=== PATIENT | male | born 1985 | race Caucasian/White ===

== ENCOUNTER 2019-05-22 19:27 | Emergency (ER) | payer OTHER ==
--- NOTE | 2019-05-22 20:41 | ER Document Report ---
ED Medical Screen (RME) - General Chief Complaint: Cough Stated Complaint: CHEST PAIN,COUGH Time Seen by Provider: 05/22/19 20:38 Mode of Arrival: Ambulatory Information source: Patient Notes: 33-year-old male with no prior history presents emergency department with complaints of cough for the past 5 weeks. Reports hurts his chest when he coughs he feels like he gets short of breath. Patient was evaluated by an urgent care and diagnosed with bronchitis treated with a Z-Ezra. He reports he never picked up the Z-Ezra. That was a couple weeks ago. He denies fever vomiting diarrhea. Patient denies smoking. Respiratory rate even unlabored I have greeted and performed a rapid initial assessment of this patient. A comprehensive ED assessment and evaluation of the patient, analysis of test results and completion of the medical decision making process will be conducted by additional ED providers. - Related Data Allergies/Adverse Reactions: No Known Allergies Allergy (Verified 05/22/19 20:37) Physical Exam - Vital signs Vitals: Temp Pulse Resp BP Pulse Ox 98.1 F 77 18 141/88 H 100 05/22/19 19:56 05/22/19 19:56 05/22/19 19:56 05/22/19 19:56 05/22/19 19:56 Course - Vital Signs Vital signs: Temp Pulse Resp BP Pulse Ox 98.1 F 77 18 141/88 H 100 05/22/19 19:56 05/22/19 19:56 05/22/19 19:56 05/22/19 19:56 05/22/19 19:56
--- NOTE | 2019-05-22 21:31 | ER Document Report ---
HPI - HPI Time Seen by Provider: 05/22/19 20:38 Pain Level: 4 Context: Patient is a 33-year-old male that comes emergency department for chief complaint of cough for just over 4 weeks now. He states that he has had some mild congestion, minimal postnasal drip, frequent irritated cough with occasional sputum production. He states it is starting to hurt more in his chest with and without cough. He denies wheezing. He states he has coughed until he threw up on a couple occasions. He denies abdominal pain, diarrhea, fever. He denies smoking but does drink alcohol daily. He denies recreational drugs previously or now. He states 2 weeks ago he was seen at an urgent care and diagnosed with bronchitis, treated with a Z-Ezra but never filled or took the Z-Ezra. He denies any daily medications were diagnosed medical history. - CONSTITUTIONAL Constitutional: DENIES: Fever, Chills Past Medical History - General Information source: Patient - Social History Smoking Status: Former Smoker Frequency of alcohol use: Heavy Drug Abuse: None Lives with: Family Family History: Reviewed & Not Pertinent Patient has suicidal ideation: No Patient has homicidal ideation: No Past Surgical History: Reports: Hx Tonsillectomy - adenoids - Immunizations Immunizations up to date: Yes Hx Diphtheria, Pertussis, Tetanus Vaccination: Yes Vertical Provider Document - CONSTITUTIONAL General Appearance: WD/WN, No Apparent Distress - HEENT HEENT: Atraumatic, Normocephalic. negative: Normal ENT Exam - Minimal nasal congestion, unremarkable oral pharyngeal exam, normal ears, nontender sinuses, unremarkable nose - NECK Neck: Normal Inspection. negative: Lymphadenopathy-Left, Lymphadenopathy-Right - RESPIRATORY Respiratory: Breath Sounds Normal, No Respiratory Distress, Other - Occasional congested coughing episodes but no tachypnea, labored breathing, or respiratory distress. Clear lungs auscultation - CARDIOVASCULAR Cardiovascular: Regular Rate, Regular Rhythm - GI/ABDOMEN Gastrointestinal: Abdomen Soft, Abdomen Non-Tender - MUSCULOSKELETAL/EXTREMETIES Musculoskeletal/Extremeties: MAEW, FROM, Non-Tender - NEURO Level of Consciousness: Awake, Alert, Appropriate Motor/Sensory: No Motor Deficit, No Sensory Deficit - DERM Integumentary: Warm, Dry, No Rash Course - Re-evaluation Re-evalutation: Patient with persistent coughing for about a month now. No fevers. Chest pain with cough. EKG shows questionable right bundle branch block but no ischemic findings, no signs of pericarditis. Patient without chest pain when he is not coughing. He has no hypoxia, tachycardia, or signs of respiratory distress. He does have some congestion with the congested cough. Overall presentation is most consistent with bronchitis, possible allergic component because of ongoing symptoms without additional sick symptoms. Patient declines oral steroids. Patient given dexamethasone instead, placed on antihistamines daily, discussed expectations, follow-up, return precautions at length. Patient states understanding and agreement with plan. Stable time of discharge. - Vital Signs Vital signs: Temp Pulse Resp BP Pulse Ox 98.1 F 77 18 141/88 H 100 05/22/19 19:56 05/22/19 19:56 05/22/19 19:56 05/22/19 19:56 05/22/19 19:56 - Diagnostic Test Radiology results interpreted by me: EKG shows sinus rhythm at a rate of 75, normal axis, borderline right bundle branch block, no T wave inversions or ST segment changes in consecutive leads. Isolated T wave inversion in lead III. Discharge - Discharge Clinical Impression: Productive cough, Painful cough Condition: Stable Disposition: HOME, SELF-CARE Additional Instructions: Your chest x-ray is negative, your evaluation is most consistent with bronchitis and your ongoing symptoms are suggestive of an allergic component. You have been treated with dexamethasone here for your symptoms, I recommend that you take the daily medication as prescribed, take Tylenol, ibuprofen, etc. for symptom management at home. Follow-up with primary care provider for additional management as discussed. Return if you worsen including fever, difficulty breathing, passing out, or any other concerning or worsening symptoms. Prescriptions: Cetirizine HCl [All Day Allergy] 10 mg PO DAILY #30 tablet
--- NOTE | 2019-05-22 21:42 | RADIOLOGY REPORT (SQ) ---
EXAM DESCRIPTION: XR CHEST 2 VIEWS COMPLETED DATE/TME: 05/22/2019 20:40 CLINICAL HISTORY: 33 years Male COUGH FOR 5 WEEKS COMPARISON: None. FINDINGS: The cardiomediastinal silhouette appears unremarkable. No consolidating infiltrates or pleural effusions. No pneumothorax. IMPRESSION: No acute abnormality is identified.
[2019-05-22] MEDS ORDERED: DEXAMETHASONE SOD PHOS INJ 10 MG/1 ML VIAL IM ONE (22:16)
[2019-05-22 22:33] VITALS: BP 146/94
--- NOTE | 2019-05-23 16:21 | EKG REPORT ---
SEVERITY:- ABNORMAL ECG - SINUS RHYTHM RIGHT BUNDLE BRANCH BLOCK : Confirmed by: Sruthi Alexander MD 23-May-2019 16:20:49
== END 2019-05-22 22:46 | disposition home or self-care (01) ==
LOC: ER 19:27
DX: R05 Cough (principal); R07.9 Chest pain, unspecified; R11.10 Vomiting, unspecified; R09.81 Nasal congestion
CPT/HCPCS: 93005; 99283; 96372; 71046; 93010; J1100